=== PATIENT | female | born 1950 | race Caucasian/White ===

== ENCOUNTER → 2017-10-18 | Outpatient (CLI) | payer OTHER ==
[~2017-10-18] MED LIST: AMT/25 PO; ASPEC325 PO; CLB200 PO; DOXY100C76 PO; HYDR-5688 PO; LEVO50TA6 PO; MULT-506 PO; NRN600 PO; SNK PO; ZLF/100 PO
--- NOTE | 2017-10-18 14:35 | MAMMOGRAPHY REPORT ---
BILATERAL DIGITAL SCREENING MAMMOGRAM TOMOSYNTHESIS WITH CAD: 10/18/2017 CLINICAL HISTORY: Routine screening. Patient has no complaints. TECHNIQUE: The study was acquired using full field digital technology and interpreted from soft copy. Breast tomosynthesis in addition to standard 2D mammography was performed. Current study was also ev aluated with a Computer Aided Detection (CAD) system. COMPARISON: Comparison is made to exams dated: 08/30/2014 mammogram, 06/26/2013 mammogram, 06/30/2012 m ammogram, 06/20/2012 mammogram, 06/15/2011 mammogram, and 09/01/2015 mammogram - [facility] nter. BREAST COMPOSITION: There are scattered areas of fibroglandular density in both breasts. FINDINGS: There are possible grouped calcifications within the right subareolar breast, for which spo t magnification views are recommended for further evaluation. There is an 8 mm asymmetry seen within the right medial breast on the cc view only, possibly projecting inferiorly based on the tomosynthes is localizer bar, for which spot compression tomosynthesis views and possible breast ultrasound are r ecommended for further evaluation. The remainder of both breasts are stable compared to prior exams, without suspicious masses, calcific ations, or areas of architectural distortion noted. Other scattered bilateral benign-appearing calci fications are not significantly changed. Nodular asymmetry within the right superior breast on the M LO view is stable compared to prior exams. IMPRESSION: ACR BI-RADS CATEGORY 0: INCOMPLETE EVALUATION: NEED ADDITIONAL IMAGING EVALUATION Right breast calcifications and right breast asymmetry, for which additional imaging evaluation is re commended. The patient will be called to schedule an appointment. Some breast cancers are not detected with mammography. A negative mammographic report should not albertina y biopsy if a clinically suggestive mass is present. Cate Koenig M.D. ah/:10/18/2017 08:50:38 Bobbin Stripper: Ashly Kwon RT(R)(M), [facility] letter sent: Addl Imaging 0 BI-RADS Code: ACR BI-RADS Category 0: Incomplete Evaluation: Need Additional Imaging Evaluation
== END | disposition home or self-care (01) ==
LOC: C.MAMM 07:14
PROVIDERS: ATTEND Family Medicine
DX: Z12.31 Encounter for screening mammogram for malignant neoplasm of breast (principal); R92.0 Mammographic microcalcification found on diagnostic imaging of breast

== ENCOUNTER → 2017-11-04 | Outpatient (CLI) | payer OTHER ==
--- NOTE | 2017-11-05 07:00 | MAMMOGRAPHY REPORT ---
UNILATERAL RIGHT DIGITAL DIAGNOSTIC MAMMOGRAM TOMOSYNTHESIS AND TARGETED RIGHT ULTRASOUND: 11/04/2017 CLINICAL HISTORY: 67-year-old woman called back from screening mammography for right breast calcifica tions and right breast asymmetry. TECHNIQUE: Spot magnification right CC, ML; spot compression 2D and tomosynthesis right CC and MLO vi ews were obtained. COMPARISON: Comparison is made to exams dated: 10/18/2017 mammogram, 09/01/2015 mammogram, 08/30/2014 ma mmogram, 06/30/2012 mammogram, 06/15/2011 mammogram, and 06/02/2009 mammogram - [facility] nter. BREAST COMPOSITION: There are scattered areas of fibroglandular density in right breast. FINDINGS: The spot compression tomosynthesis views of the right breast demonstrate a persistent 4.4 x 3.6 mm nodular asymmetry in the medial, middle to posterior right breast on the spot compression CC tomosynthesis images. This may project along the posterior nipple line on the spot compression MLO v iews no associated architectural distortion or calcification. Further characterization with ultrasou nd was performed. Spot magnification views of the right breast demonstrate scattered stable benign rounded rim calcific ations in the middle one third of the breast. In the anterior right breast at approximately 12:00 an d retroareolar regions, there are amorphous and curvilinear calcifications, slightly increased compar ing to prior full-field mammograms. The amorphous calcifications could represent benign fibrocystic change or duct ectasia although given increased conspicuity, further characterization with a right br east stereotactic guided biopsy of the new calcifications is recommended. Targeted ultrasound was performed in the medial right breast. In the 3:00 axis, 3 cm from the nipple , there is a partially circumscribed hypoechoic solid-appearing mass measuring 4.3 x 2.7 x 4.1 mm, wi th slightly angular borders. This may correspond with the mammographic nodular asymmetry/mass and is indeterminate. Definitive characterization with an ultrasound-guided core biopsy is recommended. IMPRESSION: ACR BI-RADS CATEGORY 4: SUSPICIOUS, ULTRASOUND ACR BI-RADS CATEGORY 4: SUSPICIOUS 1. Right breast ultrasound-guided core biopsy is recommended in the 3:00 axis for a 4 mm angular hyp oechoic solid-appearing mass which may correspond with the mammographic asymmetry. 2. Right breast stereotactic guided biopsy is also recommended for newly visualized amorphous calcif ications in the 12:00 anterior/retroareolar right breast. These results and recommendations were discussed with the patient at the time of the exam. She tenta tively schedule the right breast biopsies prior to leaving our department. Some breast cancers are not detected with mammography. A negative mammographic report should not albertina y biopsy if a clinically suggestive mass is present. Jimena Parry M.D. ay/:11/04/2017 12:10:39 Weblogic Developer: RT Edwin(Pati)(M), [facility] letter sent: Abnormal 4/5 OVERALL STUDY BIRADS: 4 Suspicious abnormality
== END | disposition home or self-care (01) ==
LOC: C.MAMM 08:30
PROVIDERS: ATTEND Family Medicine
DX: N64.89 Other specified disorders of breast (principal); R92.1 Mammographic calcification found on diagnostic imaging of breast; N63.10 Unspecified lump in the right breast, unspecified quadrant

== ENCOUNTER 2024-11-11 09:58 | Inpatient (IN) ==
--- NOTE | 2024-11-11 10:50 | XRay Report ---
XR chest 1V portable HISTORY: 74 years-old Female Sepsis COMPARISON: 05/27/2014 TECHNIQUE: AP view of the chest FINDINGS: Cardiac silhouette is enlarged. Pulmonary vascular congestion with interstitial coarsening. Possible small left pleural effusion. No pneumothorax. Mild patchy left greater than right bibasilar densities . Bones appear to be grossly intact. IMPRESSION: 1. Cardiomegaly with pulmonary vascular congestion. 2. Probable small left pleural effusion with mild left greater than right bibasilar densities which m ay represent atelectasis versus pneumonia. ACT 112: Negative or not required by law. The above report was generated using voice recognition software. It may contain grammatical, syntax o r spelling errors. Electronically signed by: Yifan Galvan M.D. 11/11/2024 10:47 AM
[2024-11-11 11:10] LABS: Hematocrit (blood only) 37.8 % (37.0-47.0); Hemoglobin 13.3 g/dl (12.0-16.0); Immature Granulocytes # (auto) 0.11 K/uL (0.01-0.20); Immature Granulocytes % (auto) 0.7 %; Mean Corpuscular Hemoglobin 31.0 pg (25.0-34.0); Mean Corpuscular Volume 88.1 fL (80.0-100.0); Platelet Count 174 K/uL (130-400); RDW Standard Deviation 47.2 fL (36.4-46.3); Red Blood Count 4.29 M/uL (4.20-5.40); White Blood Count 15.09 K/ul (4.8-10.8)
[2024-11-11 11:18] LABS: Base Excess VBG 3.5 mEq/L; HCO3 VBG 29 mmol/L; Oxygen Saturation VBG < 60.0 %; PCO2 VBG 47 mmHg (38-50); PO2 VBG 24 mmHg; pH VBG 7.40 (7.36-7.41)
--- NOTE | 2024-11-11 11:18 | Emergency Department Note ---
Impression & Plan Hypoxia, Fever, Leukocytosis, Pneumonia, Elevated troponin ED Provider Note NAME: BONITA RAMOS AGE: 74 SEX: F : 1950 ARRIVES VIA: Ambulance INFORMANT: [Patient] ED PROVIDER(S): [David Espinoza MD] CHIEF COMPLAINT: Respiratory problems HISTORY OF PRESENT ILLNESS: The patient is a 74-year-old female who presents to the ER with symptoms that began 3 days ago. She started with feeling tired and started with a cough. She progressed to some shortness of breath and some productive green sputum with coughing. Yesterday, she had a temperature of 103. Today, he saw her doctor at [facility] and was referred to the hospital. She was hypoxic in their office. The patient has not had stuffy nose or sore throat. No abdominal pain or vomiting. No chest pain. She has no diagnosed lung disease. The patient has been sweating quite a bit, she thinks she sweats when her fever breaks. She has been using Tylenol for the fever. PMHx/PSHx/Social Hx: See Below PHYSICAL EXAM: GENERAL: Patient is in no acute distress. HEENT: No acute trauma, normocephalic atraumatic, mucous membranes moist, no nasal congestion. NECK: No stridor, no adenopathy, no meningismus, trachea is midline. LUNGS: Crackles at both bases, more so on the left. No respiratory distress, no wheezing. HEART: Mildly tachycardic, no murmurs. Regular rhythm. ABDOMEN: Soft, nontender, no peritonitis. EXTREMITIES: No cyanosis, full range of motion of all the joints without pain or difficulty. NEUROLOGIC: Oriented x 3, no acute motor or sensory deficits, no focal weakness. SKIN: No jaundice, no diaphoresis. DIFFERENTIAL DIAGNOSIS: Bronchitis or pneumonia, viral illness, CHF, UT, among others. EMERGENCY DEPARTMENT PROCEDURES: MEDICAL DECISION MAKING: There is a moderate leukocytosis, this would be consistent with infection. There is a normal hemoglobin and platelet count. No coagulopathy. VBG did not show acidosis or CO2 retention. No renal failure. Lactic acid level was not elevated making sepsis less likely. There was no concerning liver enzyme elevation. ECG showed a sinus tachycardia, no ischemia. Cardiac enzyme testing x 1 is slightly elevated, this troponin elevation could be secondary to cardiac injury or just mismatch from her dyspnea and hypoxia. COVID, influenza and RSV test were negative. Chest x-ray does show a bilateral lower lung pneumonia. On exam, patient was hypoxic without O2 supplementation. She was febrile and tachycardic. Patient received IV saline for hydration. She was given IV cefepime as antibiotic coverage. She was given a DuoNeb, she received oral Tylenol. With the above intervention, the patient does appear to be improving, she is more comfortable, the tachycardia has resolved. Patient has pneumonia--this has caused her hypoxia, fever and current complaints. I did speak with the patient at length, I spoke with case management, the on- call hospitalist was consulted. Prior/Outside records/notes reviewed: Today's EMS notes describing her presentation and transport to this hospital. ECG per my interpretation: Indication was shortness of breath. The ECG shows a sinus tachycardia with a rate of 103. There is no ST elevation, no PVCs. The QTc is 421. Continuous Cardiac Monitoring per my interpretation: An order was placed for continuous cardiac monitoring. The monitor shows a rate of 101 with sinus tachycardia. Imaging/x-ray results per my interpretation: Chest x-ray shows congestion of both lower lungs, worse on the left, consistent with pneumonia. Chronic Medical/Social conditions affecting care: Advanced age. Care/Management discussed with: Case management, the on-call hospitalist. Level of care consideration(s): After review of the information above and other included data: --I believe the patient requires escalation of care to admission Critical Care Note: I have personally spent 45 minutes of critical care time in the direct management of this patient. This includes bedside care, interpretation of diagnostic studies, and testing, discussion with consultants, patient, and family members, and other required patient management activities. This 45 minutes is in excess of all separately billable procedures. DISPOSITION: Admission Past Med/Surg History Problem List Elevated troponin (Acute) Pneumonia (Acute) Leukocytosis (Acute) Fever (Acute) Hypoxia (Acute) Depression Anxiety CAP (community acquired pneumonia) Avulsion, finger tip (Acute) DJD (degenerative joint disease) of hip (Acute 05/25/13) Injury of ankle, right (Acute) Post-operative state (Acute 05/25/13) Post-operative state (Acute) Medical History Hypothyroidism Surgical History No pertinent past surgical history Social History Smoking Status: Never smoker Preferred Language: Chinese Feels Safe at Home: Yes Allergies Allergies Allergy/AdvReac Type Severity Reaction Status Date / Time No Known Allergies Allergy Verified 09/10/20 00:53 Home Meds Home Medications Medication Instructions Recorded Confirmed calcium 600 mg (as 1 cap PO BID 11/06/18 11/11/24 carbonate)-vitamin D3 5 mcg (200 unit) capsule (Calcium 600 + D(3)) gabapentin 600 mg tablet 600 mg PO DAILY 11/06/18 11/11/24 (Neurontin) levothyroxine 75 mcg tablet 75 mcg PO DAILY 11/06/18 11/11/24 sertraline 100 mg tablet (Zoloft) 100 mg PO DAILY 11/06/18 11/11/24 Prevagen Tabs 1 tab PO DAILY 09/10/20 11/11/24 doxepin 25 mg capsule 25 mg PO DAILY 11/11/24 11/11/24 rosuvastatin 10 mg tablet 10 mg PO DAILY 11/11/24 11/11/24 Results & Data (ED) Vital Signs Vital Signs - 24 hr 11/11/24 10:12 11/11/24 10:14 11/11/24 10:25 Temperature 38.0 C H Temperature Source Skin Pulse Rate 103 H 101 H Pulse Rate [Apical] Respiratory Rate 20 Respiratory Effort / Characteristics Non-Labored Spontaneous Non-Labored Respiratory Depth Normal Normal Respiratory Pattern Regular Blood Pressure 100/74 Blood Pressure [Right Arm] Blood Pressure Mean 82 Blood Pressure Mean [Right Arm] Pulse Oximetry 96 Oxygen Delivery Method Nasal Cannula Nasal Cannula Oxygen Flow Rate Sepsis Recent Fever Within 48 Hours No Sepsis New/Unexplained Change in Mental Status N/A Sepsis Action Taken by Nursing No Action Required 11/11/24 11:28 11/11/24 11:28 11/11/24 12:00 Temperature Temperature Source Pulse Rate Pulse Rate [Apical] 95 H 89 Respiratory Rate 18 18 Respiratory Effort / Characteristics Respiratory Depth Respiratory Pattern Blood Pressure Blood Pressure [Right Arm] 118/66 125/69 Blood Pressure Mean Blood Pressure Mean [Right Arm] 83 87 Pulse Oximetry 98 97 Oxygen Delivery Method Nasal Cannula Nasal Cannula Nasal Cannula Oxygen Flow Rate 2 2 2 Sepsis Recent Fever Within 48 Hours Sepsis New/Unexplained Change in Mental Status Sepsis Action Taken by Residential Medications Current Medication List: was personally reviewed by me Laboratory Data Attestation: I reviewed the patient's lab results. 11/11/24 10:50 11/11/24 10:50 Lab Results 11/11/24 11/11/24 11/11/24 Range/Units 10:50 11:08 11:36 WBC 15.09 H (4.8-10.8) K/ul RBC 4.29 (4.20-5.40) M/uL Hgb 13.3 (12.0-16.0) g/dl Hct 37.8 (37.0-47.0) % MCV 88.1 (80.0-100.0) fL MCH 31.0 (25.0-34.0) pg MCHC 35.2 (32.0-36.0) g/dL RDW Std Deviation 47.2 H (36.4-46.3) fL RDW Coeff of Veronique 14.6 H (11.5-14.5) % Plt Count 174 (130-400) K/uL MPV 9.9 (9.4-12.4) fL Immature Gran % (Auto) 0.7 % Neut % (Auto) 85.2 % Lymph % (Auto) 4.0 % [place] % (Auto) 9.8 % Eos % (Auto) 0.1 % Baso % (Auto) 0.2 % Neut # (Auto) 12.86 H (1.40-6.50) K/uL Lymph # (Auto) 0.60 L (1.20-3.40) K/uL [place] # (Auto) 1.48 H (0.11-0.59) K/uL Eos # (Auto) 0.01 (0.00-0.50) K/uL Baso # (Auto) 0.03 (0.00-0.20) K/uL Immature Gran # (Auto) 0.11 (0.01-0.20) K/uL PT 11.7 (9.0-12.0) Seconds INR 1.1 (0.9-1.1) APTT 26 (21-31) Seconds PTT Ratio 1.0 VBG pH 7.40 (7.36-7.41) VBG pCO2 47 (38-50) mmHg VBG pO2 24 mmHg VBG HCO3 29 mmol/L VBG O2 Saturation < 60.0 % VBG Base Excess 3.5 mEq/L Sodium 133 L (136-145) mmol/L Potassium 4.1 (3.5-5.1) mmol/L Chloride 101 (98-107) mmol/L Carbon Dioxide 26 (21-32) mmol/L Anion Gap 6 (3-11) BUN 12 (6-23) mg/dl Creatinine 0.68 (0.6-1.2) mg/dl Est Cr Clr Drug Dosing 70.6 ml/min eGFR 92.48 BUN/Creatinine Ratio 17.6 (10-20) Glucose 111 H (70-99(Fasting)) mg/dl Lactate 0.9 (0.4-2.0) mmol/L Calcium 9.3 (8.6-10.3) mg/dl Magnesium 1.8 (1.7-2.4) mg/dl Total Bilirubin 0.9 (0.2-1.0) mg/dl Direct Bilirubin 0.3 H (0-0.2) mg/dl AST 27 (13-39) U/L ALT 32 (7-52) U/L Alkaline Phosphatase 100 (34-104) U/L Troponin I High Sens 15.0 H (0-14) pg/ml Total Protein 6.5 (6.0-8.3) gm/dl Albumin 3.3 L (3.4-5.0) gm/dl Procalcitonin 1.77 H (0-0.5) ng/ml SARS-CoV-2 (PCR) NEGATIVE (Negative) Influenza Type A (PCR) Negative (Neg) Influenza Type B (PCR) Negative (Neg) RSV (RT-PCR) Negative (Neg) Administered Medications Albuterol (Albut/Ipratrop 3mg/0.5mg Neb 3 Ml Vial) 3 ml NEB Q4R [facility]; Protocol Stop: 12/11/24 14:59 Last Admin: 11/11/24 16:26 Dose: 3 ml Documented By: SIMON Benzonatate (Benzonatate 100 Mg Capsule) 100 mg PO TID [facility] Stop: 12/11/24 13:59 Last Admin: 11/11/24 14:16 Dose: 100 mg Documented By: CASSI Discontinued Medications Acetaminophen (Acetaminophen 500 Mg Tab) 1,000 mg PO NOW STA Stop: 11/11/24 10:37 Last Admin: 11/11/24 11:31 Dose: 1,000 mg Documented By: POLO Albuterol (Albut/Ipratrop 3mg/0.5mg Neb 3 Ml Vial) 3 ml NEB NOW STA; Protocol Stop: 11/11/24 10:37 Last Admin: 11/11/24 11:34 Dose: 3 ml Documented By: POLO Albuterol (Albut/Ipratrop 3mg/0.5mg Neb 3 Ml Vial) Confirm Administered Dose 3 ml .ROUTE .STK-MED ONE Stop: 11/11/24 13:57 Last Admin: 11/11/24 14:17 Dose: 3 ml Documented By: CASSI Azithromycin (Azithromycin 250 Mg Tab) 500 mg PO NOW ONE Stop: 11/11/24 13:31 Last Admin: 11/11/24 14:16 Dose: 500 mg Documented By: CASSI Sodium Chloride (Nss) 1,000 mls @ 999 mls/hr IV .Q1H1M ANDER Stop: 11/11/24 11:30 Last Infusion: 11/11/24 13:23 Dose: Infused Documented By: Admin: 11/11/24 11:32 Dose: 999 mls/hr Documented By: POLO Cefepime HCl (Maxipime 2000mg) 2,000 mg in 20 mls @ 5 mls/min IV NOW STA; Protocol Stop: 11/11/24 10:31 Last Admin: 11/11/24 11:34 Dose: 5 mls/min Documented By: POLO Vancomycin HCl 1,750 mg/ (Sodium Chloride) 535 mls @ 200 mls/hr IV NOW ONE Stop: 11/11/24 16:10 Last Infusion: 11/11/24 17:09 Dose: Infused Documented By: Admin: 11/11/24 14:16 Dose: 200 mls/hr Documented By: CASSI Ibuprofen (Ibuprofen 200 Mg Tab) 400 mg PO NOW STA Stop: 11/11/24 14:01 Last Admin: 11/11/24 14:16 Dose: 400 mg Documented By: CASSI Imaging Data Radiologist's Impression: Chest X-Ray 11/11/24 10:28 XR chest 1V portable HISTORY: 74 years-old Female Sepsis COMPARISON: 05/27/2014 TECHNIQUE: AP view of the chest FINDINGS: Cardiac silhouette is enlarged. Pulmonary vascular congestion with interstitial coarsening. Possible small left pleural effusion. No pneumothorax. Mild patchy left greater than right bibasilar densities. Bones appear to be grossly intact. IMPRESSION: 1. Cardiomegaly with pulmonary vascular congestion. 2. Probable small left pleural effusion with mild left greater than right bibasilar densities which may represent atelectasis versus pneumonia. ACT 112: Negative or not required by law. The above report was generated using voice recognition software. It may contain grammatical, syntax or spelling errors. Electronically signed by: Yifan Galvan M.D. 11/11/2024 10:47 AM Discharge Plan Visit Data Chief Complaint: Respiratory Problems Stated Complaint: WEAKNESS, FEVER SOB ED Provider: David Espinoza Discharge Problem: Hypoxia, Fever, Leukocytosis, Pneumonia, Elevated troponin Patient Disposition: Admitted As Inpatient Condition: Serious Discharge Instructions Interventions: ED Discharge Assessment Last Done: 11/11/24 13:00 Discharge Problem: Fever Qualifiers: Fever type: unspecified Qualified Code(s): R50.9 - Fever, unspecified Leukocytosis Qualifiers: Leukocytosis type: unspecified Qualified Code(s): D72.829 - Elevated white blood cell count, unspecified Pneumonia Qualifiers: Pneumonia type: due to unspecified organism Laterality: bilateral Lung location: lower lobe of lung Qualified Code(s): J18.9 - Pneumonia, unspecified organism
[2024-11-11 11:28] LABS: Alanine Aminotransferase 32.0 U/L (7-52); Alkaline Phosphatase 100.0 U/L (34-104); Anion Gap 6.0 (3-11); Bilirubin,Total 0.9 mg/dl (0.2-1.0); Blood Urea Nitrogen 12.0 mg/dl (6-23); Calcium 9.3 mg/dl (8.6-10.3); Carbon Dioxide 26.0 mmol/L (21-32); Chloride 101.0 mmol/L (98-107); Creatinine Clr Calc Pharmacy 70.6 ml/min; Glucose 111.0 mg/dl (70-99(Fasting)); Magnesium 1.8 mg/dl (1.7-2.4); Potassium 4.1 mmol/L (3.5-5.1); Sodium 133.0 mmol/L (136-145); Total Protein 6.5 gm/dl (6.0-8.3)
[2024-11-11] MEDS: ACETAMINOPHEN 500 MG TAB PO STA (11:31)
[2024-11-11] MEDS: SODIUM CHLORIDE 0.9% 1,000 ML IV SCH (11:32)
[2024-11-11] MEDS: CEFEPIME 2000MG 2,000 MG/20 ML SYR IV STA (11:34)
[2024-11-11] MEDS: ALBUT/IPRATROP 3MG/0.5MG NEB 3 ML VIAL NEB STA (11:34)
[2024-11-11 11:38] LABS: INR 1.1 (0.9-1.1); Partial Thromboplastin Time 26 Seconds (21-31); Prothrombin Time 11.7 Seconds (9.0-12.0)
[2024-11-11 12:24] LABS: Influenza A virus by PCR Negative (Neg); Influenza B virus by PCR Negative (Neg); SARS CoV2 RNA(COVID-19) Ceph NEGATIVE (Negative)
--- NOTE | 2024-11-11 12:32 | History & Physical Report ---
Date of Service November 11, 2024 Assessment & Plan (1) CAP (community acquired pneumonia): (2) Hypothyroidism: (3) Anxiety: (4) Depression: Plan CAP Acute Hypoxic Respiratory Failure Fever Leukocytosis - Admit to med surg with tele. - Sputum culture, mucinex, duonebs QID and Q2H prn, tessalon pearls, hypertonic saline nebs BID - Wean O2 prn, does not wear at baseline - MRSA swab ordered - WBC at time of admission = 15.09 - BCx x 2, follow - Tmax = 38 - Lactic acid = 0.9, Procalcitonin 1.77 - CXR reviewed as above - Continue antibiotic therapy with cefepime IV started in ER, continue azithromycin PO, vanc IV pending mrsa swab HLD - statin therapy Hypothyroidism - Continue levothyroxine 75 mcg daily Depression Anxiety - Cont home meds Sertraline, gabapentin, doxepin at bedtime DVT ppx: teds, scds Lines: 1 PIV FEN/GI:HH CODE: Full Dispo: From home, likely to remain in the hospital x 1-2 days I spent a total of 76 minutes with greater than 50% of that time face to face with the patient, personally reviewing all current laboratories, imaging studies, past medication reconciliation, outpatient chart review, and discussion with specialists to collaborate care for the patient excluding time spent in the performance of separately billed services or time spent by another provider/QHP. Please see attending documentation for corrections and/or additions. History of Present Illness Chief Complaint: Shortness of breath Primary Care Provider: Esteban Velazquez, This is a 74-year-old female with PMHx of paroxysmal SVT, HLD, hypothyroidism, esophageal dysmotility, depression, anxiety who reports 3 days of not feeling well, cough, shortness of breath, fever x 1 day with Tmax 103. Saw urgent care this morning with complaints for work up. Due to worsening shortness of breath and was found to be hypoxic at 84% in the office, she was sent to the ER. CXR reviewed in the ER showing left base with pna, WBC of 15.09. Has crackles and rales in bilateral lobes. Cefepime IV was ordered in the ER. BCx are pending. Patient denies any known sick contacts, lives at home with her who does not have symptoms. She denies any rhinorrhea, sore throat, dysphagia, changes in p.o. 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 Allergies Allergy/AdvReac Type Severity Reaction Status Date / Time No Known Allergies Allergy Verified 09/10/20 00:53 Home Medications Medication Instructions Recorded Confirmed Type calcium 600 mg (as 1 cap PO BID 11/06/18 11/11/24 History carbonate)-vitamin D3 5 mcg (200 unit) capsule (Calcium 600 + D(3)) gabapentin 600 mg tablet 600 mg PO DAILY 11/06/18 11/11/24 History (Neurontin) levothyroxine 75 mcg tablet 75 mcg PO DAILY 11/06/18 11/11/24 History sertraline 100 mg tablet (Zoloft) 100 mg PO DAILY 11/06/18 11/11/24 History Prevagen Tabs 1 tab PO DAILY 09/10/20 11/11/24 History doxepin 25 mg capsule 25 mg PO DAILY 11/11/24 11/11/24 History rosuvastatin 10 mg tablet 10 mg PO DAILY 11/11/24 11/11/24 History Past Med/Surg History Problem List Depression Anxiety Hypothyroidism CAP (community acquired pneumonia) Avulsion, finger tip (Acute) DJD (degenerative joint disease) of hip (Acute 05/25/13) Injury of ankle, right (Acute) Post-operative state (Acute 05/25/13) Post-operative state (Acute) Medical History (Updated 11/11/24 @ 12:24 by Caryl Chery PA-C) No pertinent past medical history Surgical History No pertinent past surgical history Social History Smoking Status: Never smoker Preferred Language: Uzbek Feels Safe at Home: Yes Review of Systems Review of Systems: Constitutional: + fever, sweats, no chills, no headache Eyes: No diplopia, no worsening or blurred vision ENT: normal hearing, no trouble swallowing, no runny nose or sore throat Respiratory: +cough,+ green sputum,+dyspnea with minimal ADLs and on exertion Cardiovascular: No chest pain, tightness or palpitations Abdomen: No pain, nausea, vomiting, diarrhea or constipation Musculoskeletal: No joint pain, calf pain, swelling Neurologic: No weakness, numbness/tingling, or balance problems Psychiatric: + anxiety and depression on medication Skin: No rash or itch Physical Exam Physical Exam: General: awake, alert, no apparent distress, white female Head: Normocephalic, atraumatic ENT: PERRL, EOMI, no pharyngeal exudate, mucous membranes moist Chest: On 2 L via NC, O2 sts 97%, + rales and rhonich bilateral field bases, no wheeze Cardiac: Regular rate and rhythm, no murmur, no JVD, normal peripheral pulses, good capillary refill Abdominal: NABS x 4 quadrants, soft, nondistended, nontender to palpation, no rebound or guarding Extremities: Normal inspection, no peripheral edema or erythema, calfs nontender to palpation Psych: Normal mood and affect Neuro: AAO x 3, strength intact bilaterally and rated 5/5, no motor deficits, speech is clear, no peripheral sensory deficits Results & Data Results & Data Vital Signs (Past 12 Hours) Vital Signs Temp Pulse Pulse Resp BP BP Pulse Ox 11/11/24 11:28 11/11/24 11:28 95 H 18 118/66 98 11/11/24 10:25 101 H 11/11/24 10:14 11/11/24 10:12 38.0 C H 103 H 20 100/74 96 O2 Del Method O2 Flow Rate 11/11/24 11:28 Nasal Cannula 2 11/11/24 11:28 Nasal Cannula 2 11/11/24 10:25 11/11/24 10:14 Nasal Cannula 11/11/24 10:12 Nasal Cannula Laboratory Results 11/11/24 10:50 Aerobic Blood Culture - Pending Blood Anaerobic Blood Culture - Pending 11/11/24 10:50 Aerobic Blood Culture - Pending Blood Anaerobic Blood Culture - Pending 11/11/24 11/11/24 11:08 10:50 WBC 15.09 H RBC 4.29 Hgb 13.3 Hct 37.8 MCV 88.1 MCH 31.0 MCHC 35.2 RDW Std Deviation 47.2 H RDW Coeff of Veronique 14.6 H Plt Count 174 MPV 9.9 Immature Gran % (Auto) 0.7 Neut % (Auto) 85.2 Lymph % (Auto) 4.0 [place] % (Auto) 9.8 Eos % (Auto) 0.1 Baso % (Auto) 0.2 Neut # (Auto) 12.86 H Lymph # (Auto) 0.60 L [place] # (Auto) 1.48 H Eos # (Auto) 0.01 Baso # (Auto) 0.03 Immature Gran # (Auto) 0.11 PT 11.7 INR 1.1 APTT 26 PTT Ratio 1.0 VBG pH 7.40 VBG pCO2 47 VBG pO2 24 VBG HCO3 29 VBG O2 Saturation < 60.0 VBG Base Excess 3.5 Sodium 133 L Potassium 4.1 Chloride 101 Carbon Dioxide 26 Anion Gap 6 BUN 12 Creatinine 0.68 Est Cr Clr Drug Dosing 70.6 eGFR 92.48 BUN/Creatinine Ratio 17.6 Glucose 111 H Lactate 0.9 Calcium 9.3 Magnesium 1.8 Total Bilirubin 0.9 Direct Bilirubin 0.3 H AST 27 ALT 32 Alkaline Phosphatase 100 Troponin I High Sens 15.0 H Total Protein 6.5 Albumin 3.3 L Procalcitonin 1.77 H Diagnostic Findings Chest X-Ray 11/11/24 10:28 XR chest 1V portable HISTORY: 74 years-old Female Sepsis COMPARISON: 05/27/2014 TECHNIQUE: AP view of the chest FINDINGS: Cardiac silhouette is enlarged. Pulmonary vascular congestion with interstitial coarsening. Possible small left pleural effusion. No pneumothorax. Mild patchy left greater than right bibasilar densities. Bones appear to be grossly intact. IMPRESSION: 1. Cardiomegaly with pulmonary vascular congestion. 2. Probable small left pleural effusion with mild left greater than right bibasilar densities which may represent atelectasis versus pneumonia. ACT 112: Negative or not required by law. The above report was generated using voice recognition software. It may contain grammatical, syntax or spelling errors. Electronically signed by: Yifan Galvan M.D. 11/11/2024 10:47 AM Code Status & VTE Plan Code Status Full code - discussed with pt at bedside Supervising Physician Co-Signing Physician Notes Patient seen and examined independently. Discussed with above provider. Patient presents to the hospital with shortness of breath, fever and hypoxia. CT chest concerning for multifocal pneumonia; continue on antibiotic, wean oxygen as tolerated, airway clearance therapy, follow-up on blood culture. Will need repeat CT chest in 6 weeks time to ensure resolution; discussed with patient at bedside who verbalized understanding. I have reviewed the advanced practitioner's documentation, and I agree with, and take responsibility for the plan of care I spent a total of 30 minutes coordinating, documenting, and providing care for this patient excluding time spent in the performance of separately billed ser vices. All of the aforementioned completed while collaborating with the assigned advanced practitioner for a full treatment plan
[2024-11-11] MEDS ORDERED: ACETAMINOPHEN 325 MG TAB PO PRN (13:14)
[2024-11-11] MEDS ORDERED: ONDANSETRON INJ 2 MG/ML 2 ML VIAL IV PRN (13:14)
[2024-11-11] MEDS ORDERED: VANCOMYCIN CONSULT ACTIVE PRN (13:14)
--- NOTE | 2024-11-11 14:07 | CT Scan Report ---
CT chest diagnostic wo con CT DOSE: 290.37 mGy.cm CLINICAL HISTORY: 74 years-old Female with Eval pneumonia. Acute shortness of breath TECHNIQUE: Multiaxial CT images of the chest were performed without contrast. A dose lowering techni que was utilized adhering to the principles of ALARA. COMPARISON: Chest radiograph of same day and also 05/27/2014 FINDINGS: Unremarkable thyroid. There are several mildly enlarged mediastinal and hilar lymph nodes m easuring up to approximately 10-11 mm. Heart is upper limits of normal in size. Small pericardial eff usion measures up to 6 mm posteriorly. No thoracic aortic aneurysm. Small pleural effusions. Intralobular septal thickening with bronchial wall thickening. Patchy reticu lonodular densities with ill-defined airspace opacities, most pronounced in the left greater than rig ht lung bases. No acute upper abdominal abnormality. Soft tissues are within normal limits. No acute fracture. IMPRESSION: 1. Multifocal pneumonia, most pronounced in the left greater than right lung bases. Follow-up chest C T after treatment course recommended in order to document complete resolution. 2. Likely reactive mediastinal and hilar lymphadenopathy. 3. Probable mild interstitial pulmonary edema with small pleural and pericardial effusions. ACT 112: Negative or not required by law. Electronically signed by: Yifan Glavan M.D. 11/11/2024 2:06 PM
[2024-11-11] MEDS: IBUPROFEN 200 MG TAB PO STA (14:16)
[2024-11-11] MEDS: AZITHROMYCIN 250 MG TAB PO ONE (14:16)
[2024-11-11] MEDS: BENZONATATE 100 MG CAPSULE PO SCH (14:16)
[2024-11-11] MEDS: VANCOMYCIN HCL 1,750 MG in SODIUM CHLORIDE 0.9% 500 ML IV ONE (14:16)
[2024-11-11] MEDS: ALBUT/IPRATROP 3MG/0.5MG NEB 3 ML VIAL ONE (14:17)
--- NOTE | 2024-11-11 15:00 | Pharmacy Report ---
Pharmacy PK ABX Note - Date of Service November 11, 2024 - Assessment and Plan Assessment 74 year old F receiving vanc/cefepime/azithromycin for treatment of CAP. Pertinent microbiologic data includes: MRSA nasal swab pending, blood cultures pending, WBC 15, Procal 1.77. Flu/covid negative. Consider holding vancomycin/discontinuing if MRSA swab negative. . Plan Vancomycin * Loading dose: 1750 mg IV x 1 * Maintenance dose: 1000 mg IV every 12 hours * Regimen is predicted to achieve target AUC/YARON of 400-600 mg/L.hr * Random level to be ordered if continued >48 hours Pharmacy will continue to follow and will adjust dose/frequency as necessary. Thank you. Pharmacy has transitioned to AUC monitoring for vancomycin. AUC/YARON is the preferred PK/PD target and is associated with decreased risk of nephrotoxicity compared to traditional trough targets.
[2024-11-11] MEDS: ALBUT/IPRATROP 3MG/0.5MG NEB 3 ML VIAL NEB SCH (16:26)
[2024-11-11] MEDS: CEFEPIME 2000MG 2,000 MG/20 ML SYR IV SCH (17:48)
[2024-11-11] MEDS: guaiFENesin 600 MG TABCR PO SCH (19:53)
[2024-11-11] MEDS: SODIUM CHLOR 7% 4 ML NEB NEB SCH (19:55)
[2024-11-11 20:20] LABS: Appearance Urine Cloudy (Clear); Bacteria Urine Automated None Seen (None Seen); Glucose Urine UA Negative (Negative); RBC Urine Automated 0-2 /hpf (0-2)
[2024-11-11] MEDS: DOXEPIN HCL 25 MG CAPSULE PO SCH (23:54)
[2024-11-12] MEDS: VANCOMYCIN HCL 1,000 MG/270 ML BAG IV SCH (01:36)
--- NOTE | 2024-11-12 05:25 | Electrocardiogram Report ---
Test Reason : Blood Pressure : */* mmHG Vent. Rate : 103 BPM Atrial Rate : 103 BPM P-R Int : 120 ms QRS Dur : 90 ms QT Int : 322 ms P-R-T Axes : 52 -30 67 degrees QTcB Int : 421 ms Sinus tachycardia Left axis deviation Abnormal ECG When compared with ECG of 10-Sep-2020 00:50, No significant change was found Confirmed by Tomasz Murray ([id number]) on 11/12/2024 5:24:59 AM Referred By: Confirmed By: Tomasz Murray
[2024-11-12 06:54] LABS: Hematocrit (blood only) 35.3 % (37.0-47.0); Hemoglobin 11.7 g/dl (12.0-16.0); Immature Granulocytes # (auto) 0.08 K/uL (0.01-0.20); Immature Granulocytes % (auto) 0.6 %; Mean Corpuscular Hemoglobin 29.7 pg (25.0-34.0); Mean Corpuscular Volume 89.6 fL (80.0-100.0); Platelet Count 169 K/uL (130-400); RDW Standard Deviation 48.9 fL (36.4-46.3); Red Blood Count 3.94 M/uL (4.20-5.40); White Blood Count 13.65 K/ul (4.8-10.8)
[2024-11-12 07:17] LABS: Anion Gap 7.0 (3-11); Blood Urea Nitrogen 18.0 mg/dl (6-23); Calcium 8.5 mg/dl (8.6-10.3); Carbon Dioxide 22.0 mmol/L (21-32); Chloride 107.0 mmol/L (98-107); Creatinine Clr Calc Pharmacy 61.1 ml/min; Glucose 78.0 mg/dl (70-99(Fasting)); Potassium 4.2 mmol/L (3.5-5.1); Sodium 136.0 mmol/L (136-145)
[2024-11-12] MEDS: AZITHROMYCIN 250 MG TAB PO SCH (08:13)
--- NOTE | 2024-11-12 10:59 | Hospitalist Progress Note ---
Date of Service November 12, 2024 Assessment & Plan (1) CAP (community acquired pneumonia): (2) Hypothyroidism: (3) Anxiety: (4) Depression: Plan 74-year-old female with PMHx of paroxysmal SVT, HLD, hypothyroidism, esophageal dysmotility, depression, anxiety who reports 3 days of not feeling well, cough w/ green sputum, shortness of breath, fever x 1 day with Tmax 103. Saw urgent care this morning with complaints for work up. Due to worsening shortness of breath and was found to be hypoxic at 84% in the office, she was sent to the ER. She is being managed for the following: CAP, Sepsis POA 2/2/ CAP: HR/temp and wbc elevated at presentation Acute Hypoxic Respiratory Failure Fever Leukocytosis - Admit to med surg with tele. - Sputum culture, mucinex, duonebs QID and Q2H prn, tessalon pearls, hypertonic saline nebs BID - Wean O2 prn, does not wear at baseline, on 2L NC O2 at bedside exam today. - MRSA swab neg, dc vanc. Imagings reviewed. - BCx x 2, follow - Pt reports feeling "a lot better" - Continue antibiotic therapy with cefepime IV started in ER, continue azithromycin PO, vanc IV dc'd. - Follow-up with repeat CT scan of the chest in about 6 to 8 weeks to document resolution of pneumonia. HLD- c/w statin therapy Hypothyroidism- c/w home levothyroxine 75 mcg daily Depression Anxiety - Cont home meds Sertraline, gabapentin, doxepin at bedtime DVT ppx: Hep SC. Lines: 1 PIV FEN/GI:HH CODE: Full Dispo: From home, likely to remain in the hospital x 1-2 days Admission and Anticipated Discharge Date Admission Date: November 11, 2024 Subjective Patient was seen and examined at bedside. Patient was lying in bed, on room air, NAD, resting comfortably. Patient reports feeling significantly better, reports cough with greenish sputum which is improving, denies pain or burning while passing urine, denies chest pain or shortness of breath now. Patient reports being able to eat better now, reports moving bowels okay. Physical Exam 2 Physical Exam: General: awake, alert, no apparent distress, white female, on 2L NC O2 Head: Normocephalic, atraumatic ENT: PERRL, EOMI, no pharyngeal exudate, mucous membranes moist Chest: + rales and rhonchi bilateral field bases, no wheeze Cardiac: Regular rate and rhythm, no murmur, no JVD, normal peripheral pulses, good capillary refill Abdominal: NABS x 4 quadrants, soft, nondistended, nontender to palpation, no rebound or guarding Extremities: Normal inspection, no peripheral edema or erythema, calfs nontender to palpation Psych: Normal mood and affect Neuro: AAO x 3, strength intact bilaterally and rated 5/5, no motor deficits, speech is clear, no peripheral sensory deficits Results & Data Results & Data Vital Signs (Past 12 Hours) Vital Signs Temp Pulse Pulse Pulse Resp BP Pulse Ox 11/12/24 10:38 94 H 18 92 11/12/24 09:17 93 11/12/24 09:13 95 11/12/24 08:39 93 11/12/24 08:39 95 11/12/24 08:26 11/12/24 07:53 37.3 C 88 18 105/64 95 11/12/24 06:58 91 H 18 92 11/12/24 05:55 85 11/12/24 03:42 36.4 C L 85 20 103/61 90 11/12/24 03:10 87 18 91 11/12/24 00:28 36.4 C L 82 20 102/63 93 O2 Del Method O2 Flow Rate 11/12/24 10:38 Room Air 11/12/24 09:17 Nasal Cannula 1 11/12/24 09:13 Nasal Cannula 1.5 11/12/24 08:39 Nasal Cannula 1.5 11/12/24 08:39 Nasal Cannula 2 11/12/24 08:26 Nasal Cannula 2 11/12/24 07:53 Nasal Cannula 2 11/12/24 06:58 Nasal Cannula 2 11/12/24 05:55 11/12/24 03:42 Nasal Cannula 2 11/12/24 03:10 Nasal Cannula 2 11/12/24 00:28 Nasal Cannula 2
[2024-11-12] MEDS: diphenhydrAMINE Capsule 25 MG CAP PO ONE (12:01)
[2024-11-12] MEDS: FAMOTIDINE 40 MG TABLET PO ONE (12:01)
[2024-11-12] MEDS: HEPARIN SOD 5,000 UNIT/0.5 ML VIAL SQ SCH (20:15)
[2024-11-13] MEDS: LEVOTHYROXINE SODIUM 75 MCG TABLET PO SCH (06:20)
[2024-11-13 06:52] LABS: Hematocrit (blood only) 35.8 % (37.0-47.0); Hemoglobin 12.0 g/dl (12.0-16.0); Mean Corpuscular Hemoglobin 29.6 pg (25.0-34.0); Mean Corpuscular Volume 88.2 fL (80.0-100.0); Platelet Count 204 K/uL (130-400); RDW Standard Deviation 48.4 fL (36.4-46.3); Red Blood Count 4.06 M/uL (4.20-5.40); White Blood Count 14.48 K/ul (4.8-10.8)
[2024-11-13 07:11] LABS: Anion Gap 6.0 (3-11); Blood Urea Nitrogen 14.0 mg/dl (6-23); Calcium 8.4 mg/dl (8.6-10.3); Carbon Dioxide 25.0 mmol/L (21-32); Chloride 103.0 mmol/L (98-107); Creatinine Clr Calc Pharmacy 63.0 ml/min; Glucose 101.0 mg/dl (70-99(Fasting)); Magnesium 2.0 mg/dl (1.7-2.4); Potassium 3.9 mmol/L (3.5-5.1); Sodium 134.0 mmol/L (136-145)
[2024-11-13] MEDS: ROSUVASTATIN CALCIUM 10 MG TAB PO SCH (09:07)
[2024-11-13] MEDS: SERTRALINE HCL 100 MG TABLET PO SCH (09:08)
[2024-11-13] MEDS: ALBUT/IPRATROP 3MG/0.5MG NEB 3 ML VIAL NEB SCH (13:29)
--- NOTE | 2024-11-13 15:39 | Hospitalist Progress Note ---
Date of Service November 13, 2024 Assessment & Plan (1) CAP (community acquired pneumonia): (2) Hypothyroidism: (3) Anxiety: (4) Depression: Plan 74-year-old female with PMHx of paroxysmal SVT, HLD, hypothyroidism, esophageal dysmotility, depression, anxiety who reports 3 days of not feeling well, cough w/ green sputum, shortness of breath, fever x 1 day with Tmax 103. Saw urgent care this morning with complaints for work up. Due to worsening shortness of breath and was found to be hypoxic at 84% in the office, she was sent to the ER. She is being managed for the following: CAP, Sepsis POA 2/2/ CAP: HR/temp and wbc elevated at presentation Acute Hypoxic Respiratory Failure Fever Leukocytosis - Sputum culture-not collected, mucinex, duonebs QID and Q2H prn, tessalon pearls, hypertonic saline nebs BID - Wean O2 prn, does not wear at baseline, on 2L NC O2 at bedside exam today. - MRSA swab neg, dc vanc. Imagings reviewed. - BCx-negative x 2 - Continue antibiotic therapy with cefepime IV started in ER, continue azithromycin PO, vanc IV dc'd. - Follow-up with repeat CT scan of the chest in about 6 to 8 weeks to document resolution of pneumonia - She has been feeling much better with minimal cough but no shortness of breath Likely discharge tomorrow HLD- c/w statin therapy Hypothyroidism- c/w home levothyroxine 75 mcg daily Depression Anxiety - Cont home meds Sertraline, gabapentin, doxepin at bedtime DVT ppx: Hep SC. Lines: 1 PIV FEN/GI:HH CODE: Full Dispo: From home, likely to remain in the hospital x 1-2 days Admission and Anticipated Discharge Date Admission Date: November 11, 2024 Subjective 11/13/2024 Patient was seen and examined in medical floor She has been feeling much better and sitting on a chair with minimal respiratory distress Minimal cough but no chest pain and no shortness of breath Review of Systems Review of Systems: All systems reviewed and are unremarkable except as noted below Physical Exam Physical Exam: Sitting on a chair without any acute distress Constitutional: well developed, well nourished and + ill appearing Eyes: PERRL, conjunctivae normal, anicteric sclerae ENMT: external ear and nose normal, oropharynx normal Neck: trachea midline, no thyromegaly Respiratory: no respiratory distress Auscultation: + diminished lung sounds, + crackles (Minimal crackles at the bases, left more than right) and + wheezes Cardiovascular: Rate/Rhythm: regular rate and regular rhythm; not tachycardic Heart Sounds: normal S1 and normal S2; no murmur Extremities: no edema Gastrointestinal (Abdomen): Inspection/Auscultation: normal bowel sounds; abdomen not distended Percussion/Palpation: abdomen soft; abdomen nontender Musculoskeletal: No acute arthritis involving any of the joint Neurologic: normal touch/pain/proprioception and moves all extremities; no focal motor deficits Psychiatric: A+Ox3, euthymic affect Lymphatic: no cervical or axillary lymphadenopathy Results & Data Results & Data Vital Signs (Past 12 Hours) Vital Signs Temp Pulse Pulse Resp BP BP Pulse Ox 11/13/24 15:12 98 H 11/13/24 15:05 37.6 C H 84 18 146/72 H 94 11/13/24 13:29 85 17 94 11/13/24 11:14 11/13/24 11:08 36.9 C 87 18 144/79 H 95 11/13/24 11:00 11/13/24 07:30 95 H 17 96 11/13/24 07:25 36.7 C 90 18 144/84 H 93 11/13/24 07:25 89 11/13/24 03:39 93 H 18 93 11/13/24 03:38 37.2 C 75 20 130/74 96 Pulse Ox O2 Del Method O2 Del Method O2 Flow Rate O2 Flow Rate 11/13/24 15:12 11/13/24 15:05 Nasal Cannula 2 11/13/24 13:29 Nasal Cannula 3 11/13/24 11:14 Nasal Cannula 3 11/13/24 11:08 Nasal Cannula 3 11/13/24 11:00 95 Nasal Cannula 3 11/13/24 07:30 Nasal Cannula 4 11/13/24 07:25 Nasal Cannula 4 11/13/24 07:25 11/13/24 03:39 Nasal Cannula 4 11/13/24 03:38 Nasal Cannula 2 Laboratory Results Short CBC 11/13/24 Range/Units 05:55 WBC 14.48 H (4.8-10.8) K/ul Hgb 12.0 (12.0-16.0) g/dl Hct 35.8 L (37.0-47.0) % Plt Count 204 (130-400) K/uL BMP 11/13/24 05:55 Sodium 134 L Potassium 3.9 Chloride 103 Carbon Dioxide 25 BUN 14 Creatinine 0.76 Glucose 101 H Calcium 8.4 L You really have few interesting patient self psychiatric and Medications Administered Current Inpatient Medications Acetaminophen (Acetaminophen 325 Mg Tab) 650 mg PO Q4H PRN PRN Reason: Moderate Pain (Scale 4, 5, 6) Stop: 12/11/24 13:13 Albuterol (Albut/Ipratrop 3mg/0.5mg Neb 3 Ml Vial) 3 ml NEB Q6R ANDER; Protocol Stop: 12/13/24 12:59 Last Admin: 11/13/24 13:29 Dose: 3 ml Azithromycin (Azithromycin 250 Mg Tab) 250 mg PO QAM [facility] Stop: 11/15/24 09:01 Last Admin: 11/13/24 09:07 Dose: 250 mg Benzonatate (Benzonatate 100 Mg Capsule) 100 mg PO TID [facility] Stop: 12/11/24 13:59 Last Admin: 11/13/24 13:46 Dose: 100 mg Doxepin HCl (Doxepin Hcl 25 Mg Capsule) 25 mg PO HS [facility] Stop: 12/11/24 23:29 Last Admin: 11/12/24 20:16 Dose: 25 mg Guaifenesin (Guaifenesin 600 Mg Tabcr) 1,200 mg PO Q12 [facility] Stop: 12/11/24 20:59 Last Admin: 11/13/24 09:07 Dose: 1,200 mg Heparin Sodium (Porcine) (Heparin Sod 5,000 Unit/0.5 Ml Vial) 5,000 units SQ Q12 [facility] Stop: 12/12/24 20:59 Last Admin: 11/13/24 09:08 Dose: 5,000 units Hydrocodone Bit/Homatropine Methylb (Hydrocodone/Homatropine Syrup 5mg/1.5mg 5ml Udp) 5 ml PO TID PRN PRN Reason: Cough Stop: 11/25/24 22:44 Last Admin: 11/12/24 22:44 Dose: 5 ml Cefepime HCl (Maxipime 2000mg) 2,000 mg in 20 mls @ 5 mls/min IV Q8H [facility]; Protocol Stop: 11/16/24 18:59 Last Admin: 11/13/24 10:51 Dose: 5 mls/min Levothyroxine Sodium (Levothyroxine Sodium 75 Mcg Tablet) 75 mcg PO DAILYBB [facility] Stop: 12/13/24 06:29 Last Admin: 11/13/24 06:20 Dose: 75 mcg Ondansetron HCl (Ondansetron Inj 2 Mg/Ml 2 Ml Vial) 4 mg IV Q4H PRN PRN Reason: Nausea And Vomiting Stop: 12/11/24 13:13 Rosuvastatin Calcium (Rosuvastatin Calcium 10 Mg Tab) 10 mg PO DAILY [facility] Stop: 12/13/24 08:59 Last Admin: 11/13/24 09:07 Dose: 10 mg Sertraline HCl (Sertraline Hcl 100 Mg Tablet) 100 mg PO DAILY [facility] Stop: 12/13/24 08:59 Last Admin: 11/13/24 09:08 Dose: 100 mg Sodium Chloride (Sodium Chlor 7% 4 Ml Neb) 4 ml NEB BIDR [facility] Stop: 12/11/24 18:59 Last Admin: 11/13/24 07:30 Dose:
[2024-11-14 07:22] LABS: Hematocrit (blood only) 34.5 % (37.0-47.0); Hemoglobin 12.0 g/dl (12.0-16.0); Immature Granulocytes # (auto) 0.21 K/uL (0.01-0.20); Immature Granulocytes % (auto) 1.6 %; Mean Corpuscular Hemoglobin 30.7 pg (25.0-34.0); Mean Corpuscular Volume 88.2 fL (80.0-100.0); Platelet Count 226 K/uL (130-400); RDW Standard Deviation 47.8 fL (36.4-46.3); Red Blood Count 3.91 M/uL (4.20-5.40); White Blood Count 12.97 K/ul (4.8-10.8)
[2024-11-14 07:29] VITALS: BP 130/91; RESP 18; TEMP 98.6; O2SAT 94
[2024-11-14 07:44] LABS: Anion Gap 6.0 (3-11); Blood Urea Nitrogen 11.0 mg/dl (6-23); Calcium 8.4 mg/dl (8.6-10.3); Carbon Dioxide 26.0 mmol/L (21-32); Chloride 103.0 mmol/L (98-107); Creatinine Clr Calc Pharmacy 74.6 ml/min; Glucose 96.0 mg/dl (70-99(Fasting)); Potassium 4.1 mmol/L (3.5-5.1); Sodium 135.0 mmol/L (136-145)
--- NOTE | 2024-11-14 11:24 | Hospitalist Progress Note ---
Date of Service November 14, 2024 Assessment & Plan (1) CAP (community acquired pneumonia): (2) Hypothyroidism: (3) Anxiety: (4) Depression: Plan 74-year-old female with PMHx of paroxysmal SVT, HLD, hypothyroidism, esophageal dysmotility, depression, anxiety who reports 3 days of not feeling well, cough w/ green sputum, shortness of breath, fever x 1 day with Tmax 103. Saw urgent care this morning with complaints for work up. Due to worsening shortness of breath and was found to be hypoxic at 84% in the office, she was sent to the ER. She is being managed for the following: CAP, Sepsis POA 2/2/ CAP: HR/temp and wbc elevated at presentation Acute Hypoxic Respiratory Failure Fever Leukocytosis - Sputum culture-not collected, mucinex, duonebs QID and Q2H prn, tessalon pearls, hypertonic saline nebs BID - Wean O2 prn, does not wear at baseline, on 2L NC O2 at bedside exam today. - MRSA swab neg, dc vanc. Imagings reviewed. - BCx-negative x 2 - Continue antibiotic therapy with cefepime IV started in ER, continue azithromycin PO, vanc IV dc'd. - Follow-up with repeat CT scan of the chest in about 6 to 8 weeks to document resolution of pneumonia - She has been feeling much better with minimal cough but no shortness of breath Clinically much better and complains to minimal cough but no other symptoms She will be given oral cefdinir and neomycin to finish the course of antibiotic She will need to have a repeat CAT scan in 6 to 8 weeks to document resolution of pneumonia HLD- c/w statin therapy Hypothyroidism- c/w home levothyroxine 75 mcg daily Depression Anxiety - Cont home meds Sertraline, gabapentin, doxepin at bedtime DVT ppx: Hep SC. Lines: 1 PIV FEN/GI:HH CODE: Full Dispo: will be discharged home this afternoon Admission and Anticipated Discharge Date Admission Date: November 11, 2024 Subjective 11/13/2024 Patient was seen and examined in medical floor She has been feeling much better and sitting on a chair with minimal respiratory distress Minimal cough but no chest pain and no shortness of breath 11/14/2024 The patient was seen and examined in medical telemetry unit She has been feeling much better and has minimal cough No shortness of breath at rest or with ambulation She has been saturating normally on room air Review of Systems Review of Systems: All systems reviewed and are unremarkable except as noted below Physical Exam Physical Exam: Sitting on a chair without any acute distress Constitutional: well developed, well nourished and + ill appearing Eyes: PERRL, conjunctivae normal, anicteric sclerae ENMT: external ear and nose normal, oropharynx normal Neck: trachea midline, no thyromegaly Respiratory: no respiratory distress Auscultation: + diminished lung sounds, + crackles (Minimal crackles at the bases, left more than right) and + wheezes Cardiovascular: Rate/Rhythm: regular rate and regular rhythm; not tachycardic Heart Sounds: normal S1 and normal S2; no murmur Extremities: no edema Gastrointestinal (Abdomen): Inspection/Auscultation: normal bowel sounds; abdomen not distended Percussion/Palpation: abdomen soft; abdomen nontender Musculoskeletal: No acute arthritis involving any of the joint Neurologic: normal touch/pain/proprioception and moves all extremities; no focal motor deficits Psychiatric: A+Ox3, euthymic affect Lymphatic: no cervical or axillary lymphadenopathy Results & Data Results & Data Vital Signs (Past 12 Hours) Vital Signs Temp Pulse Resp BP Pulse Ox O2 Del Method O2 Flow Rate 11/14/24 07:28 37.0 C 86 18 130/91 94 Nasal Cannula 11/14/24 07:23 86 16 95 Nasal Cannula 3 11/14/24 02:21 37.7 C H 95 H 18 122/55 L 92 Nasal Cannula 2 11/14/24 01:12 95 H 20 90 Nasal Cannula 3 Laboratory Results Short CBC 11/14/24 Range/Units 06:19 WBC 12.97 H (4.8-10.8) K/ul Hgb 12.0 (12.0-16.0) g/dl Hct 34.5 L (37.0-47.0) % Plt Count 226 (130-400) K/uL BMP 11/14/24 06:19 Sodium 135 L Potassium 4.1 Chloride 103 Carbon Dioxide 26 BUN 11 Creatinine 0.63 Glucose 96 Calcium 8.4 L Medications Administered Current Inpatient Medications Acetaminophen (Acetaminophen 325 Mg Tab) 650 mg PO Q4H PRN PRN Reason: Moderate Pain (Scale 4, 5, 6) Stop: 12/11/24 13:13 Albuterol (Albut/Ipratrop 3mg/0.5mg Neb 3 Ml Vial) 3 ml NEB Q6R [facility]; Protocol Stop: 12/13/24 12:59 Last Admin: 11/14/24 07:23 Dose: 3 ml Azithromycin (Azithromycin 250 Mg Tab) 250 mg PO QAM [facility] Stop: 11/15/24 09:01 Last Admin: 11/14/24 08:18 Dose: 250 mg Benzonatate (Benzonatate 100 Mg Capsule) 100 mg PO TID [facility] Stop: 12/11/24 13:59 Last Admin: 11/14/24 08:21 Dose: 100 mg Cefdinir (Cefdinir 300 Mg Cap) 300 mg PO BID [facility]; Protocol Stop: 11/19/24 20:59 Doxepin HCl (Doxepin Hcl 25 Mg Capsule) 25 mg PO HS [facility] Stop: 12/11/24 23:29 Last Admin: 11/13/24 20:21 Dose: 25 mg Guaifenesin (Guaifenesin 600 Mg Tabcr) 1,200 mg PO Q12 [facility] Stop: 12/11/24 20:59 Last Admin: 11/14/24 08:18 Dose: 1,200 mg Heparin Sodium (Porcine) (Heparin Sod 5,000 Unit/0.5 Ml Vial) 5,000 units SQ Q12 [facility] Stop: 12/12/24 20:59 Last Admin: 11/14/24 08:19 Dose: 5,000 units Hydrocodone Bit/Homatropine Methylb (Hydrocodone/Homatropine Syrup 5mg/1.5mg 5ml Udp) 5 ml PO TID PRN PRN Reason: Cough Stop: 11/25/24 22:44 Last Admin: 11/12/24 22:44 Dose: 5 ml Cefepime HCl (Maxipime 2000mg) 2,000 mg in 20 mls @ 5 mls/min IV Q8H [facility]; Protocol Stop: 11/16/24 18:59 Last Admin: 11/14/24 04:08 Dose: 5 mls/min Levothyroxine Sodium (Levothyroxine Sodium 75 Mcg Tablet) 75 mcg PO DAILYBB [facility] Stop: 12/13/24 06:29 Last Admin: 11/14/24 05:00 Dose: 75 mcg Ondansetron HCl (Ondansetron Inj 2 Mg/Ml 2 Ml Vial) 4 mg IV Q4H PRN PRN Reason: Nausea And Vomiting Stop: 12/11/24 13:13 Rosuvastatin Calcium (Rosuvastatin Calcium 10 Mg Tab) 10 mg PO DAILY [facility] Stop: 12/13/24 08:59 Last Admin: 11/14/24 08:18 Dose: 10 mg Sertraline HCl (Sertraline Hcl 100 Mg Tablet) 100 mg PO DAILY [facility] Stop: 12/13/24 08:59 Last Admin: 11/14/24 08:18 Dose: 100 mg Sodium Chloride (Sodium Chlor 7% 4 Ml Neb) 4 ml NEB BIDR [facility] Stop: 12/11/24 18:59 Last Admin: 11/14/24 07:23 Dose: 4 ml
[2024-11-14 12:47] VITALS: PULSE 91
[2024-11-14] MEDS ORDERED: CEFDINIR 300 MG CAP PO SCH (21:00)
--- NOTE | 2024-11-15 07:34 | Discharge Summary ---
Date of Service November 15, 2024 Admission HPI Per Admitting Provider This is a 74-year-old female with PMHx of paroxysmal SVT, HLD, hypothyroidism, esophageal dysmotility, depression, anxiety who reports 3 days of not feeling well, cough, shortness of breath, fever x 1 day with Tmax 103. Saw urgent care this morning with complaints for work up. Due to worsening shortness of breath and was found to be hypoxic at 84% in the office, she was sent to the ER. CXR reviewed in the ER showing left base with pna, WBC of 15.09. Has crackles and rales in bilateral lobes. Cefepime IV was ordered in the ER. BCx are pending. Patient denies any known sick contacts, lives at home with her who does not have symptoms. She denies any rhinorrhea, sore throat, dysphagia, changes in p.o. 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 Admission Exam Per Admitting Provider Physical Exam: General: awake, alert, no apparent distress, white female Head: Normocephalic, atraumatic ENT: PERRL, EOMI, no pharyngeal exudate, mucous membranes moist Chest: On 2 L via NC, O2 sts 97%, + rales and rhonich bilateral field bases, no wheeze Cardiac: Regular rate and rhythm, no murmur, no JVD, normal peripheral pulses, good capillary refill Abdominal: NABS x 4 quadrants, soft, nondistended, nontender to palpation, no rebound or guarding Extremities: Normal inspection, no peripheral edema or erythema, calfs nontender to palpation Psych: Normal mood and affect Neuro: AAO x 3, strength intact bilaterally and rated 5/5, no motor deficits, speech is clear, no peripheral sensory deficits Principal Diagnosis Community-acquired pneumonia Discharge Exam Sitting on a chair without any acute distress Constitutional well developed, well nourished and + ill appearing Eyes PERRL, conjunctivae normal, anicteric sclerae ENMT external ear and nose normal, oropharynx normal Neck trachea midline, no thyromegaly Respiratory no respiratory distress Auscultation: + diminished lung sounds, + crackles (Minimal crackles at the bases, left more than right) and + wheezes Cardiovascular Rate/Rhythm: regular rate and regular rhythm; not tachycardic Heart Sounds: normal S1 and normal S2; no murmur Extremities: no edema Gastrointestinal (Abdomen) Inspection/Auscultation: normal bowel sounds; abdomen not distended Percussion/Palpation: abdomen soft; abdomen nontender Neurologic normal touch/pain/proprioception and moves all extremities; no focal motor deficits Psychiatric A+Ox3, euthymic affect Lymphatic no cervical or axillary lymphadenopathy Discharge Data Allergies Allergy/AdvReac Type Severity Reaction Status Date / Time No Known Allergies Allergy Verified 09/10/20 00:53 Consultations 11/11/24 12:13 ED Decision to Admit Stat Ordered Studies 11/11/24 12:23 CT chest diagnostic wo con Stat Hospital Course (1) CAP (community acquired pneumonia): (2) Hypothyroidism: (3) Anxiety: (4) Depression: Plan 74-year-old female with PMHx of paroxysmal SVT, HLD, hypothyroidism, esophageal dysmotility, depression, anxiety who reports 3 days of not feeling well, cough w/ green sputum, shortness of breath, fever x 1 day with Tmax 103. Saw urgent care this morning with complaints for work up. Due to worsening shortness of breath and was found to be hypoxic at 84% in the office, she was sent to the ER. She is being managed for the following: CAP, Sepsis POA 2/2/ CAP: HR/temp and wbc elevated at presentation Acute Hypoxic Respiratory Failure Fever Leukocytosis - Sputum culture-not collected, mucinex, duonebs QID and Q2H prn, tessalon pearls, hypertonic saline nebs BID - Wean O2 prn, does not wear at baseline, on 2L NC O2 at bedside exam today. - MRSA swab neg, dc vanc. Imagings reviewed. - BCx-negative x 2 - Continue antibiotic therapy with cefepime IV started in ER, continue azithrom ycin PO, vanc IV dc'd. - Follow-up with repeat CT scan of the chest in about 6 to 8 weeks to document resolution of pneumonia - She has been feeling much better with minimal cough but no shortness of breath Clinically much better and complains to minimal cough but no other symptoms She will be given oral cefdinir and neomycin to finish the course of antibiotic She will need to have a repeat CAT scan in 6 to 8 weeks to document resolution of pneumonia HLD- c/w statin therapy Hypothyroidism- c/w home levothyroxine 75 mcg daily Depression Anxiety - Cont home meds Sertraline, gabapentin, doxepin at bedtime DVT ppx: Hep SC. Lines: 1 PIV FEN/GI:HH CODE: Full Dispo: will be discharged home this afternoon Total Time Total Time Spent Total Time Spent (In Minutes): 35 Minutes Discharge Plan Discharge Items Patient Disposition: Home - Self-Care Reason For Visit: PNEUMONIA Discharge Diagnosis: Community-acquired pneumonia Condition on Discharge: Good Activity: Resume your previous activity Non-emergency contact: Primary Care Provider Call non-emergency contact if: you have any medication questions and your symptoms worsen Follow-up/Referrals: Esteban Velazquez, DO [Primary Care Provider] - (Your doctor's office will give you a call with an appointment within 7 days to make a log for this to PCP appointment. ) Diet: Heart Healthy Addtl Attending Provider Instructions: Please take precautions to avoid falls Please the course of antibiotic You can try some probiotics [id number] as long as you are on antibiotic Try [id number] cough suppressants Please keep appointment with your healthcare provider You will need to have a repeat CAT scan of the chest in 6 to 8 weeks to see the resolution of the pneumonia Pending Studies at Discharge: No Stand-Alone Forms: My [facility], Important Visit Information Medications and DC Order Prescriptions: New azithromycin 250 mg Tablet 250 mg PO QAM Qty: 2 0RF benzonatate 100 mg Capsule 100 mg PO TID Qty: 30 0RF cefdinir 300 mg Capsule 300 mg PO BID Qty: 14 0RF Continued gabapentin [Neurontin] 600 mg tablet 600 mg PO DAILY sertraline [Zoloft] 100 mg tablet 100 mg PO DAILY levothyroxine 75 mcg tablet 75 mcg PO DAILY calcium carbonate-vitamin D3 [Calcium 600 + D(3)] 600 mg calcium- 200 unit Capsule 1 cap PO BID Patient Comments: 11/11- otc unable to verify Prevagen Tabs 1 tab PO DAILY Patient Comments: 11/11- otc unable to verify doxepin 25 mg capsule 25 mg PO DAILY rosuvastatin 10 mg tablet 10 mg PO DAILY Discharge Orders: Discharge Order (Routine); Ordered 11/14/24 Ordered By: Ashanti Bonilla Admission Data Admit Date/Time: 11/11/24 12:23 Attending Provider: Ashanti Bonilla Admmalissa Provider: Onesimo Acuna Primary Care Provider: Esteban Velazquez Other Providers: Onesimo Acuna; Layla Orta Other Interventions: Discharge Summary Assessment (RN) Last Done: 11/14/24 12:45
== END 2024-11-14 14:19 | disposition home or self-care (01) | DRG 871 ==
LOC: ED 09:58 → EDINP 12:23 → SUATTDRO 12:23 → 2N 13:00